=== PATIENT | female | born 1985 | race Hispanic/Latino ===

== ENCOUNTER 2017-07-06 19:13 | Emergency (ER) | payer OTHER ==
[2017-07-06] MEDS ORDERED: Ibuprofen 800 MG TAB ONE (19:38)
[2017-07-06] MEDS ORDERED: Benzocaine 20% Spray 60 ML CAN ONE (19:38)
== END 2017-07-06 20:00 | disposition home or self-care (01) ==
LOC: SCSER 19:13
DX: K04.7 Periapical abscess without sinus (principal); K02.9 Dental caries, unspecified; Z79.899 Other long term (current) drug therapy
CPT/HCPCS: 41800

== ENCOUNTER 2021-08-17 09:41 | Outpatient (CLI) | payer BC | END 2021-08-17 09:42 | disposition home or self-care (01) | LOC: BICULT 09:41 | PROVIDERS: ATTEND Internal Medicine | DX: R74.01 Elevation of levels of liver transaminase levels (principal); K80.20 Calculus of gallbladder without cholecystitis without obstruction; K76.0 Fatty (change of) liver, not elsewhere classified | CPT/HCPCS: 76705 ==